=== PATIENT | female | born 1980 | race Caucasian/White ===

== ENCOUNTER 2017-12-17 10:00 | Emergency (ER) | payer OTHER ==
--- NOTE | 2017-12-17 12:47 | EDM.PDOC ---
Scribed by Edith Hampton 12/17/17 1247 for Aman Dudley MD ED HPI GENERAL MEDICAL PROBLEM - General Chief Complaint: Lower Extremity Injury/Pain Stated Complaint: LEFT ANKLE Time Seen by Provider: 12/17/17 11:20 Source of Information: Reports: Patient, RN, RN Notes Reviewed History Limitations: Reports: No Limitations - History of Present Illness INITIAL COMMENTS - FREE TEXT/NARRATIVE: Patient presents to ER with complaint left ankle pain sustained last night. Patient was wearing high heels and tripped over a child's toy at a wedding. Denies any other injury. 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 ED EXAM, GENERAL - Physical Exam Exam: See Below Exam Limited By: No Limitations General Appearance: Alert, WD/WN, No Apparent Distress, Obese Head: Atraumatic, Normocephalic Respiratory/Chest: No Respiratory Distress Cardiovascular: Normal Peripheral Pulses Extremities: Other (left ankle with lateral swelling. No visible bruising or deformity. Tender to palpation anteriorly and laterally. No obvious deformity. Skin is intact. ) ED TRAUMA EXTREMITY PROCEDURES - Splinting Left Lower Extremity Splint Site: left ankle Pre-Procedure NV Status: Normal Post-Procedure NV Status: Normal Splint Material: Boot Orthotic Applied & Form Fitted By: Nurse Provider Post-Splint Application NV Check: NV Status Normal, Good Position Complications: No Course - Vital Signs Last Recorded V/S: Last Vital Signs Temp 37.1 C 12/17/17 11:08 Pulse 66 12/17/17 11:08 Resp 16 12/17/17 11:08 BP 115/74 12/17/17 11:08 Pulse Ox 99 12/17/17 11:08 - Orders/Labs/Meds Orders: Active Orders 24 hr Category Date Time Status DME for Discharge [COMM] Routine Oth 12/17/17 12:40 Ordered DME for Discharge [COMM] Routine Oth 12/17/17 12:40 Ordered - Radiology Interpretation Free Text/Narrative:: X-ray left ankle: Distal fibular fracture minimally displaced. See rad report. Departure - Departure Time of Disposition: 12:41 Disposition: Home, Self-Care 01 Condition: Good Clinical Impression: Closed fracture of left distal fibula Qualifiers: Encounter type: initial encounter Fracture morphology: unspecified fracture morphology Qualified Code(s): S82.832A - Other fracture of upper and lower end of left fibula, initial encounter for closed fracture - Discharge Information Instructions: Ankle Fracture, [id number] Forms: ED Department Discharge Additional Instructions: Rest, ice and elevate left ankle. Wear the splint boot and use crutches for nonweight bearing on left foot. Call [phone] tomorrow morning at the [facility] in [place]. - My Orders Last 24 Hours: My Active Orders 12/17/17 12:40 DME for Discharge [COMM] Routine DME for Discharge [COMM] Routine - Assessment/Plan Last 24 Hours: My Active Orders 12/17/17 12:40 DME for Discharge [COMM] Routine DME for Discharge [COMM] Routine I have read and agree with the documentation that has been completed regarding this visit. By signing this record, I attest that the documentation was completed in my physical presence and is an accurate record of the encounter.
== END 2017-12-17 12:57 | disposition home or self-care (01) ==
LOC: DL.ED 10:00
DX: S82.832A Other fracture of upper and lower end of left fibula, initial encounter for closed fracture (principal); E03.9 Hypothyroidism, unspecified; W18.09XA Striking against other object with subsequent fall, initial encounter
CPT/HCPCS: 73610-LT; 99284

== ENCOUNTER 2019-05-09 18:03 | Emergency (ER) | payer BC, OTHER | END 2019-05-09 19:19 | disposition left against medical advice (07) | LOC: DL.ED 18:03 | DX: Z53.21 Procedure and treatment not carried out due to patient leaving prior to being seen by health care provider (principal) | CPT/HCPCS: 81001; 81025; 87086 ==